=== PATIENT | female | born 1955 | race African-American/Black ===

== ENCOUNTER 2016-11-23 01:20 | Emergency (ER) | payer OTHER ==
[~2016-11-23] VITALS: Ht 172.7 cm; Wt 53.6 kg
[2016-11-23] MEDS ORDERED: HYDROmorphone 1 MG/ML, 1ML IM ONE (02:00)
[2016-11-23] MEDS ORDERED: METHOCARBAMOL 750 MG TABLET PO ONE (02:00)
[2016-11-23] MEDS ORDERED: METHOCARBAMOL 750 MG TABLET ONE (02:04)
[2016-11-23] MEDS ORDERED: HYDROmorphone 1 MG/ML, 1ML ONE (02:04)
[2016-11-23] MEDS ORDERED: OMNIPAQUE 350 MG/ML, 100ML BOTTLE ONE ×2 (03:47→04:00)
[2016-11-23 06:35] VITALS: BP 112/64
== END 2016-11-23 06:38 | disposition home or self-care (01) ==
LOC: ED 05:09
DX: S39.012A Strain of muscle, fascia and tendon of lower back, initial encounter (principal); X58.XXXA Exposure to other specified factors, initial encounter; Y93.89 Activity, other specified; Y99.8 Other external cause status; Y92.89 Other specified places as the place of occurrence of the external cause
CPT/HCPCS: 36415; 71275; 74174; 74176; 80047; 81001; 84484; 87086; 96372; 99285; J1170; Q9967